=== PATIENT | male | born 1940 | race Two or more races ===

== ENCOUNTER 2021-01-22 17:33 | Emergency (ER) | payer MEDICARE, OTHER ==
[~2021-01-22] VITALS: Ht 170.2 cm; Wt 119.3 kg
[~2021-01-22 17:33] MED LIST: AMLO-496; ASPI81CH49; GABA400C11; LISI40TA11; LOVA40TA72; METF-916; METO1TAB77; OMEGCAP2; OXYB5TAB24; TRAZEDONE; [UNRECOGNIZED DRUG - CODE]
[2021-01-22] MEDS ORDERED: cefTRIAXone SOD 1,000 MG VL IM ONE (19:00)
[2021-01-22] MEDS ORDERED: HYDROcodone-ACET 10/325MG TAB PO ONE (19:00)
[2021-01-22] MEDS ORDERED: MORPHINE SULFATE INJECTION 2 MG/ML SYRG IV ONE (20:30)
[2021-01-22] MEDS ORDERED: ONDANSETRON ODT 4 MG TAB PO ONE (20:30)
[2021-01-22 21:56] LABS: Basophils # (auto) 0 10 ^3/uL (0-0.2); Basophils % (auto) 0.6 % (0.0-2.0); Eosinophils # (auto) 0.2 10 ^3/uL (0-0.8); Eosinophils % (auto) 3.1 % (0.0-7.0); Hematocrit 42.7 % (41.0-53.0); Hemoglobin 14.8 g/dL (13.5-17.5); Lymphocytes % (auto) 26.9 % (10.0-50.0); Mean Corpuscular Hemoglobin 29.6 pg (28.0-32.0); Mean Corpuscular Hgb Conc. 34.7 g/dL (32.0-36.0); Mean Corpuscular Volume 85.4 fL (80.0-100.0); Monocytes # (auto) 0.6 10 ^3/uL (0-1.3); Monocytes % (auto) 7.8 % (0.0-12.0); Neutrophils # (auto) 4.6 10 ^3/uL (1.6-8.6); Neutrophils % (auto) 61.6 % (37.0-80.0); Nucleated Red Blood Cells % 0.1 %; Red Blood Cells 4.99 10^6/uL (4.5-5.90); Red Cell Distribution Width 13.9 % (11.8-14.3); White Blood Cell 7.4 10^3/uL (4.4-10.8)
[2021-01-22 22:11] LABS: Albumin 3.8 g/dL (3.4-5.0); Anion Gap 8 (5-15); Blood Urea Nitrogen 9 mg/dL (7-18); Calcium 8.9 mg/dL (8.5-10.1); Carbon Dioxide 24 mmol/L (21-32); Chloride 103 mmol/L (98-107); Glucose 136 mg/dL (74-106); INR 1.07 (0.9-1.15); Partial Thromboplastin Time 21.8 sec (23.0-31.2); Potassium 3.4 mmol/L (3.5-5.1); Sodium 135 mmol/L (136-145)
[2021-01-22 22:23] LABS: Alanine Aminotransferase 38 U/L (16-61); Alkaline Phosphatase 66 U/L (45-117); Aspartate Aminotransferase 32 U/L (15-37); Bilirubin, Total 0.4 mg/dL (0.2-1.0); GFR African American 117 mL/min; GFR Non-African American 96 mL/min
[2021-01-23] MEDS ORDERED: LIDOCAINE W/ EPINEPHRINE 1% 20ML VIAL ONE (01:44)
[2021-01-23] MEDS ORDERED: LIDOCAINE 1% HCL (LOCAL ANESTH.) INJ 20ML MDV ONE (01:46)
[2021-01-23] MEDS ORDERED: LIDOCAINE 1% HCL (LOCAL ANESTH.) INJ 20ML MDV IJ ONE (02:30)
[2021-01-23] MEDS ORDERED: BACITRACIN TOP OINT 1 UD PKG TOP ONE (02:45)
[2021-01-23] MEDS ORDERED: POTASSIUM CHL 20 Meq TABLET PO ONE (04:45)
[2021-01-23 06:30] VITALS: BP 118/58
== END 2021-01-23 08:33 | disposition short-term general hospital (02) ==
LOC: ER 17:33
DX: S02.2XXA Fracture of nasal bones, initial encounter for closed fracture (principal); S01.21XA Laceration without foreign body of nose, initial encounter; G96.00 Cerebrospinal fluid leak, unspecified; J32.9 Chronic sinusitis, unspecified; W26.8XXA Contact with other sharp object(s), not elsewhere classified, initial encounter; Y93.89 Activity, other specified; Y92.89 Other specified places as the place of occurrence of the external cause; Y99.8 Other external cause status
CPT/HCPCS: 12013; 36415; 70450; 70486; 72125; 80053; 84484; 85025; 85610; 85730; 96372; 96374; 99285; J0696; J2001; J2270; Q0162

== ENCOUNTER 2021-01-24 11:02 | Emergency (ER) | payer OTHER ==
[~2021-01-24] VITALS: Ht 170.2 cm; Wt 118.8 kg
[2021-01-24 11:07] VITALS: BP 129/82
== END 2021-01-24 12:36 | disposition home or self-care (01) ==
LOC: ER 11:02
DX: S01.21XD Laceration without foreign body of nose, subsequent encounter (principal); I10 Essential (primary) hypertension; I25.10 Atherosclerotic heart disease of native coronary artery without angina pectoris; Z98.61 Coronary angioplasty status; Z79.82 Long term (current) use of aspirin; Z79.899 Other long term (current) drug therapy; X58.XXXD Exposure to other specified factors, subsequent encounter